=== PATIENT | female | born 1970 | race Caucasian/White ===

== ENCOUNTER 2018-09-06 07:45 | Day surgery (SDC) | payer BC ==
[~2018-09-06 07:45] MED LIST: ISOSULFAN BLUE 1% 5 ML INJ SC; SOD CHLORIDE 0.9% 1,000 ML IV
[2018-09-06] MEDS ORDERED: SOD CHLORIDE 0.9% 1,000 ML IV (08:00)
[2018-09-06] MEDS: CEFAZOLIN 2 GM/50 ML (PMX) 50 ML IVPB ×2 (08:00→12:44)
[2018-09-06] MEDS ORDERED: ISOSULFAN BLUE 1% 5 ML INJ SC (10:48)
[2018-09-06] MEDS ORDERED: LIDOCAINE 1% (MPF) 30 ML INJ (10:48)
[2018-09-06] MEDS ORDERED: SUCCINYLCHOLINE CHLORIDE 100 MG/5 ML SYG IV (11:10)
[2018-09-06] MEDS ORDERED: PROPOFOL 20 ML (11:10)
[2018-09-06] MEDS ORDERED: HYDROmorphONE 2 MG/ML SYG (11:10)
[2018-09-06] MEDS ORDERED: hydrALAzine 20 MG INJ (11:22)
[2018-09-06] MEDS ORDERED: SUGAMMADEX SODIUM 200 MG/2 ML VIAL IV (12:08)
[2018-09-06] MEDS ORDERED: ROCURONIUM 50 MG INJ (12:08)
[2018-09-06] MEDS ORDERED: HYDROCODONE/APAP (7.5/325) TAB PO (12:30)
[2018-09-06] MEDS ORDERED: HYDROmorphONE 1 MG/5 ML IV SYRINGE IV (12:37)
[2018-09-06] MEDS: HYDROmorphONE 1 MG/5 ML IV SYRINGE IV ×3 (12:43→13:32)
[2018-09-06] MEDS ORDERED: LABETALOL HCL 20MG INJ IV (13:00)
[2018-09-06] MEDS ORDERED: MEPERIDINE 25 MG INJ IV (13:00)
[2018-09-06] MEDS ORDERED: hydrALAzine 20 MG INJ IV (13:00)
[2018-09-06] MEDS: ONDANSETRON 4 MG INJ IV ×2 (13:31→15:00)
== END 2018-09-06 15:44 | disposition home or self-care (01) ==
LOC: SDS 07:45
DX: C50.811 Malignant neoplasm of overlapping sites of right female breast (principal); I10 Essential (primary) hypertension
CPT/HCPCS: 19301